=== PATIENT | male | born 2000 | race Caucasian/White ===

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

== ENCOUNTER 2022-02-02 22:29 | Emergency (ER) | payer OTHER ==
[2022-02-02 22:40] VITALS: BP 122/71; PULSE 97; TEMP 100.2; BMI 24.1
[2022-02-02] MEDS ORDERED: ONDANSETRON 4 MG/2 ML VIAL IVPUSH ONE (22:50)
[2022-02-02] MEDS ORDERED: KETOROLAC TROMETHAMINE 30 MG/1 ML VIAL IVPUSH ONE (22:50)
[2022-02-02] MEDS ORDERED: SODIUM CHLORIDE 0.9% 500 ML INFUS.BAG IV ONE (22:50)
[2022-02-02] MEDS ORDERED: ONDANSETRON 4 MG/2 ML VIAL ONE (22:54)
[2022-02-02] MEDS ORDERED: KETOROLAC TROMETHAMINE 30 MG/1 ML VIAL ONE (22:54)
== END 2022-02-03 00:46 | disposition home or self-care (01) ==
LOC: JER 22:29
PROC: 3E0333Z Introduction of Anti-inflammatory into Peripheral Vein, Percutaneous Approach (ICD-10-PCS; principal; 2022-02-02)
PROC: 3E0333Z Introduction of Anti-inflammatory into Peripheral Vein, Percutaneous Approach (ICD-10-PCS; 2022-02-02)
DX: R05.1 Acute cough (principal); R19.7 Diarrhea, unspecified; R11.10 Vomiting, unspecified; R50.9 Fever, unspecified
CPT/HCPCS: 0241U-QW; 99284-25

== ENCOUNTER 2023-08-06 09:25 | Emergency (ER) | payer OTHER ==
[2023-08-06 09:31] VITALS: BP 140/85; PULSE 98; RESP 18; TEMP 98.5; BMI 24.1
== END 2023-08-06 11:15 | disposition home or self-care (01) ==
LOC: JER 09:25
DX: R05.9 Cough, unspecified (principal); R09.81 Nasal congestion; M79.10 Myalgia, unspecified site; R68.83 Chills (without fever); R06.2 Wheezing; R07.9 Chest pain, unspecified; J39.2 Other diseases of pharynx; J34.89 Other specified disorders of nose and nasal sinuses; J10.1 Influenza due to other identified influenza virus with other respiratory manifestations; Z20.822 Contact with and (suspected) exposure to COVID-19
CPT/HCPCS: 0241U-QW; 99283-25

== ENCOUNTER 2023-09-22 13:19 | Emergency (ER) | payer OTHER ==
[2023-09-22 13:31] VITALS: BP 123/80; PULSE 93; RESP 18; TEMP 98; BMI 23.3
== END 2023-09-22 16:01 | disposition home or self-care (01) ==
LOC: JERFT 13:19
DX: G47.00 Insomnia, unspecified (principal)
CPT/HCPCS: 99283-25